=== PATIENT | female | born 1935 | race Caucasian/White ===

== ENCOUNTER 2017-01-04 09:54 | Emergency (ER) | payer OTHER ==
[2017-01-04] MEDS ORDERED: IPRATROPIUM/ALBUTEROL 3 ML DEYVIAL ONE (10:01)
[2017-01-04 10:23] LABS: % IMMATURE GRANULYOCYTES 0.7 % (0.0-1.1); ABSOLUTE IMMATURE GRANULOCYTES 0.13 10^3/uL (0.00-0.10); ADD DIFF? NO; ADD MORPH? NO; ADD SCAN? NO; ATYPICAL LYMPHOCYTE FLAG 10 (0-99); FRAGMENT RBC FLAG 0 (0-99); HEMATOCRIT 36.4 % (38.0-47.0); HEMOGLOBIN 11.7 g/dL (12.6-16.3); LEFT SHIFT FLG 0 (0-99); LIPEMIA HEMOLYSIS FLAG 80 (0-99); MEAN CELL HEMOGLOBIN 33.7 pg (27.9-34.1); MEAN CELL HEMOGLOBIN CONCENTR. 32.1 g/dL (32.4-36.7); MEAN CELL VOLUME 104.9 fL (81.5-99.8); MEAN PLATELET VOLUME 8.8 fL (8.7-11.7); PLATELET CLUMPS FLAG 20 (0-99); PLATELET COUNT 322 10^3/uL (150-400); RED BLOOD CELL COUNT 3.47 10^6/uL (4.18-5.33); RED CELL DISTRIBUTION WIDTH 13.8 % (11.5-15.2)
[2017-01-04] MEDS ORDERED: IPRATROPIUM/ALBUTEROL 3 ML DEYVIAL IH ONE (10:25)
[2017-01-04] MEDS ORDERED: methylPREDNISolone SOD SUCC 125 MG/2 ML VIAL IVP ONE (10:25)
--- NOTE | 2017-01-04 10:29 | EDPHY ---
H & P Time Seen by Provider: 01/04/17 10:06 HPI/ROS: CHIEF COMPLAINT: Shortness of breath, fever HISTORY OF PRESENT ILLNESS: 81-year-old female with a history of oxygen- dependent COPD presents with shortness of breath and fever. Onset left-sided upper back pain last evening. Associated with a fever to 101 and a productive cough. Onset of shortness of breath this morning. The shortness of breath was severe and relieved with an albuterol nebulized treatment. According to EMS, on their arrival she was on oxygen 2 L by nasal cannula and oxygen saturation was 77% on room air. She is usually on 5 L oxygen by nasal cannula. Recent history of left-sided pneumonia, now off antibiotics. She is on prednisone 15 mg orally daily. REVIEW OF SYSTEMS: Constitutional: no chills Eyes: No visual changes ENT: No sore throat Cardiac: No chest pain Gastrointestinal: No nausea, no vomiting, no abdominal pain Genitourinary: no dysuria Musculoskeletal: No leg pain or swelling Skin: No rash Neurological: No headache, no weakness Psychiatric: No depression Past Medical/Surgical History: Oxygen-dependent COPD Social History: Just moved to assisted living Physical Exam: General Appearance: Alert, on BiPAP, speaking in full sentences Eyes: Pupils equal and round, no conjunctival pallor or injection ENT, Mouth: Mucous membranes moist Neck: Normal inspection Respiratory: mild increased respiratory rate, decreased breath sounds throughout, scattered expiratory wheezing Cardiovascular: Regular tachycardia Gastrointestinal: Abdomen is soft and nontender Neurological: A&O, nonfocal exam Skin: Warm and dry, no rash Extremities: Nontender, no pedal edema Psychiatric: Mood and affect normal Constitutional: Initial Vital Signs Temperature (C) 38.6 C H 01/04/17 10:22 Heart Rate 114 H 01/04/17 10:22 Respiratory Rate 28 H 01/04/17 10:22 Blood Pressure 190/96 H 01/04/17 10:22 O2 Sat (%) 95 01/04/17 10:22 O2 Delivery Mode Nasal Cannula O2 (L/minute) 5 Allergies/Adverse Reactions: amoxicillin Allergy (Verified 01/04/17 10:43) hydrochlorothiazide Allergy (Verified 01/04/17 10:43) levofloxacin Allergy (Verified 01/04/17 10:43) oxycodone Allergy (Verified 01/04/17 10:43) Home Medications: Medication Instructions Recorded Doxycycline Hyclate 100 mg PO BID #20 tablet 01/04/17 predniSONE [Prednisone] 30 mg PO DAILY #30 tablet 01/04/17 Medical Decision Making - Diagnostics EKG Interpretation: EKG interpreted by me reveals sinus tachycardia, rate 113, no ST or T segment changes. Imaging Results: Imaging Impressions Chest X-Ray 01/04/17 10:07 Impression: Findings consistent with airways disease are noted with possible superimposed right lower lung pneumonia. Results called and discussed with RODNEY DENNEY on 01/04/2017 at 10:41 ED Course/Re-evaluation: This patient presented with severe shortness of breath in the pre-hospital setting. On arrival, she appears quite comfortable on BiPAP. BiPAP was removed and she was placed on oxygen 5 L by nasal cannula. She maintained an oxygen saturation of greater than 90% on room air. The clinical presentation is consistent with recurrent pneumonia versus acute bronchitis. A DuoNeb and Solu-Medrol 125 mg IV given. 10:45 a.m.-chest x-ray results discussed with Dr. Thomson. No evidence of pneumonia. I discussed the chest x-ray with the patient and her daughter. At this point her respiratory status is at her baseline. She is on 5 L by nasal cannula and oxygen saturation is 90%. She usually ranges between 88 and 92%. This morning, she may have accidentally turned down her oxygen, which caused hypoxia and increased shortness of breath. Associated with this, she had increased anxiety and felt panicky. She now feels to her baseline. The option of admitting her to the hospital for observation versus discharge home discussed with the patient and her daughter. They will discuss and me know what feels best for the patient. 11:30 a.m.-the patient would like to go home. She continues to feel back to her baseline. Her daughter is in agreement with this plan. I will place her on doxycycline in case she has early pneumonia. I will also increase her prednisone from 15 mg daily to 30 mg daily. She will return with worsening symptoms or any concerns. Differential Diagnosis: Differential diagnosis includes though it is not limited to pneumonia, pneumothorax, pulmonary embolism, aortic dissection, pericarditis, acute coronary syndrome. - Data Points Laboratory Results: Laboratory Results 01/04/17 10:19 01/04/17 10:19 01/04/17 01/04/17 01/04/17 10:27 10:19 10:19 WBC RBC Hgb Hct MCV MCH MCHC RDW Plt Count MPV Neut % (Auto) Lymph % (Auto) Mcdonough % (Auto) Eos % (Auto) Baso % (Auto) Nucleat RBC Rel Count Absolute Neuts (auto) Absolute Lymphs (auto) Absolute Monos (auto) Absolute Eos (auto) Absolute Basos (auto) Absolute Nucleated RBC Immature Gran % Immature Gran # PT 12.7 SEC SEC (12.0-15.0) INR 0.96 (0.83-1.16) APTT 25.9 SEC SEC (23.0-38.0) VBG Lactic Acid 1.5 mmol/L mmol/L (0.7-2.1) Sodium 136 mEq/L mEq/L (134-144) Potassium 4.4 mEq/L mEq/L (3.5-5.2) Chloride 95 mEq/L L mEq/L (97-110) Carbon Dioxide 28 mEq/l mEq/l (22-31) Anion Gap 13 mEq/L mEq/L (8-16) BUN 16 mg/dL mg/dL (7-23) Creatinine 0.7 mg/dL mg/dL (0.6-1.0) Estimated GFR > 60 Glucose 110 mg/dL H mg/dL (70-100) Calcium 10.3 mg/dL mg/dL (8.5-10.4) Total Bilirubin 0.9 mg/dL mg/dL (0.1-1.4) 01/04/17 10:19 WBC 18.69 10^3/uL H 10^3/uL (3.80-9.50) RBC 3.47 10^6/uL L 10^6/uL (4.18-5.33) Hgb 11.7 g/dL L g/dL (12.6-16.3) Hct 36.4 % L % (38.0-47.0) MCV 104.9 fL H fL (81.5-99.8) MCH 33.7 pg pg (27.9-34.1) MCHC 32.1 g/dL L g/dL (32.4-36.7) RDW 13.8 % % (11.5-15.2) Plt Count 322 10^3/uL 10^3/uL (150-400) MPV 8.8 fL fL (8.7-11.7) Neut % (Auto) 74.5 % H % (39.3-74.2) Lymph % (Auto) 14.6 % L % (15.0-45.0) Mcdonough % (Auto) 7.8 % % (4.5-13.0) Eos % (Auto) 2.1 % % (0.6-7.6) Baso % (Auto) 0.3 % % (0.3-1.7) Nucleat RBC Rel Count 0.0 % % (0.0-0.2) Absolute Neuts (auto) 13.92 10^3/uL H 10^3/uL (1.70-6.50) Absolute Lymphs (auto) 2.73 10^3/uL 10^3/uL (1.00-3.00) Absolute Monos (auto) 1.45 10^3/uL H 10^3/uL (0.30-0.80) Absolute Eos (auto) 0.40 10^3/uL 10^3/uL (0.03-0.40) Absolute Basos (auto) 0.06 10^3/uL 10^3/uL (0.02-0.10) Absolute Nucleated RBC 0.00 10^3/uL 10^3/uL (0-0.01) Immature Gran % 0.7 % % (0.0-1.1) Immature Gran # 0.13 10^3/uL H 10^3/uL (0.00-0.10) PT INR APTT VBG Lactic Acid Sodium Potassium Chloride Carbon Dioxide Anion Gap BUN Creatinine Estimated GFR Glucose Calcium Total Bilirubin Microbiology Results: MICROBIOLOGY 01/04/17 10:40 Nasal, Sinus - Swab Respiratory Panel (PCR) - Final No Organism Detected Medications Given: Discontinued Medications Acetaminophen (Tylenol) 650 mg PO EDNOW ONE Stop: 01/04/17 10:52 Last Admin: 01/04/17 11:01 Dose: 650 mg Albuterol/Ipratropium (Duoneb) 3 ml IH EDNOW ONE Stop: 01/04/17 10:26 Last Admin: 01/04/17 10:47 Dose: 3 ml Methylprednisolone Sodium Succinate (Solu-Medrol) 125 mg IVP EDNOW ONE Stop: 01/04/17 10:26 Last Admin: 01/04/17 10:47 Dose: 125 mg Departure - Departure Disposition: Home, Routine, Self-Care Clinical Impression: Acute bronchitis Qualifiers: Bronchitis organism: unspecified organism Qualified Code(s): J20.9 - Acute bronchitis, unspecified Condition: Good Instructions: Acute Bronchitis (ED) Additional Instructions: Take Tylenol 650 mg orally every 4 hours as needed for fever. Usual breathing treatment 4 times daily as needed for wheezing or shortness of breath. Increase prednisone to 30 mg daily. Take doxycycline as prescribed. 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 Return to the emergency department for worsening symptoms or any concerns. Prescriptions: Doxycycline Hyclate 100 mg PO BID #20 tablet predniSONE [Prednisone] 30 mg PO DAILY #30 tablet
[2017-01-04 10:34] LABS: INR 0.96 (0.83-1.16); PROTIME(PATIENT) 12.7 SEC (12.0-15.0)
[2017-01-04 10:35] LABS: APTT 25.9 SEC (23.0-38.0)
[2017-01-04 10:38] LABS: ANION GAP 13 mEq/L (8-16); BILIRUBIN,TOTAL 0.9 mg/dL (0.1-1.4); CALCIUM 10.3 mg/dL (8.5-10.4); CARBON DIOXIDE 28 mEq/l (22-31); CHLORIDE 95 mEq/L (97-110); CREATININE 0.7 mg/dL (0.6-1.0); GLOMERULAR FILTRATION RATE > 60; GLUCOSE 110 mg/dL (70-100); POTASSIUM 4.4 mEq/L (3.5-5.2); SODIUM 136 mEq/L (134-144)
[2017-01-04] MEDS ORDERED: ACETAMINOPHEN 325 MG TAB PO ONE (10:51)
[2017-01-04 11:22] VITALS: O2SAT 93
[2017-01-04 13:48] VITALS: BP 161/78; PULSE 96; RESP 20; TEMP 100.2
== END 2017-01-04 12:40 | disposition home or self-care (01) ==
DX: J44.0 Chronic obstructive pulmonary disease with (acute) lower respiratory infection (principal); J20.9 Acute bronchitis, unspecified
CPT/HCPCS: 96374